=== PATIENT | female | born 1995 | race Caucasian/White ===

== ENCOUNTER 2020-10-29 20:49 | Emergency (ER) | payer BC, MEDICAID ==
[~2020-10-29] VITALS: Ht 162.6 cm; Wt 60.0 kg
[~2020-10-29 20:49] MED LIST: CITA20TA28 PO
[2020-10-29 21:02] VITALS: BP 124/81
--- NOTE | 2020-10-29 21:08 | NUR ---
PATIENT IN NO OPBSERVABLE S/S OF ACUTE RESPIRATORY DISTRESS AT THIS TIME PATIENT WAS PROVIDED WITH [facility]LET FOR OUT PATIENT MATERIAL WHERE TO GET COVID TEST OUTSIDE OF THE HOSPITAL SETTING
--- NOTE | 2020-10-29 21:59 | NUR ---
patient refusing send out atkinson test stated " i was told i could get a rapid." patient was told that provider will be notified. Patient now asking for toradol shot for lower back pain provider verbalized with a negative test we will give toradol w/o test patient can get tylenolProvider agrees no rapid will be done
--- NOTE | 2020-10-29 22:29 | NUR ---
PATIENT VERBALIZED SHE WILL HAVE A SEND OUT COVID SWAB
[2020-10-29 22:41] LABS: URINE HCG NEGATIVE (NEG)
[2020-10-29] MEDS ORDERED: ketorolac trometh inj. 60 MG/2 ML VIAL IM ONE (22:50)
== END 2020-10-29 23:01 | disposition home or self-care (01) ==
LOC: ER 20:50
DX: M54.5 Low back pain (principal); Z20.828 Contact with and (suspected) exposure to other viral communicable diseases; R09.81 Nasal congestion; G89.29 Other chronic pain; F17.200 Nicotine dependence, unspecified, uncomplicated; F12.90 Cannabis use, unspecified, uncomplicated; Z90.49 Acquired absence of other specified parts of digestive tract; Z90.89 Acquired absence of other organs; Z88.6 Allergy status to analgesic agent; Z79.899 Other long term (current) drug therapy; Z72.89 Other problems related to lifestyle
CPT/HCPCS: 36415; 81025; 87635; 96372; 99283; J1885

== ENCOUNTER 2022-03-12 16:08 | Emergency (ER) | payer BC, MEDICAID ==
[~2022-03-12] VITALS: Ht 162.6 cm; Wt 55.9 kg
[2022-03-12 16:52] LABS: BASOPHILS % (AUTO) 0.6 % (0-1); EOSINOPHILS % (AUTO) 0.4 % (0-6); HEMATOCRIT 41.2 % (35.0-45.0); HEMOGLOBIN 13.9 g/dl (12.0-16.0); LYMPHOCYTES # (AUTO) 1.6 X10'3 (1.1-4.8); LYMPHOCYTES % (AUTO) 47.2 % (21-51); MEAN CORPUSCULAR HEMOGLOBIN 29.1 PG (27.0-31.0); MEAN CORPUSCULAR HGB CONC 33.7 g/dL (33.0-36.5); MEAN CORPUSCULAR VOLUME 86.4 FL (78-98); MONOCYTES # (AUTO) 0.5 X10'3 (0-0.9); MONOCYTES % (AUTO) 14.8 % (2-12); NEUTROPHILS # (AUTO) 1.3 X10'3 (1.8-7.7); PLATELET COUNT 239 X10'3 (140-440); RED BLOOD COUNT 4.77 X10'6 (4.20-5.60); RED CELL DISTRIBUTION WIDTH 13.2 % (11.5-14.5); WHITE BLOOD COUNT 3.4 X10'3 (4.5-11.0)
[2022-03-12 16:55] LABS: CLARITY,URINE CLEAR (Clear); COLOR,URINE YELLOW (Yellow); GLUCOSE, URINE NEGATIVE (Neg); KETONES,URINE NEGATIVE (Neg); LEUKOCYTE ESTERASE ,URINE NEGATIVE (Neg); NITRITES, URINE NEGATIVE (Neg); OCCULT BLOOD,URINE TRACE-INTACT (Neg); PROTEIN,URINE 30 mg/dl (Neg); URINE HCG NEGATIVE (NEG); UROBILINOGEN,URINE 0.2 E.U/dL (0.2-1.0)
[2022-03-12 16:59] LABS: UA COLLECTION TYPE NON-SPECIFIED
[2022-03-12 17:00] LABS: BACTERIA,URINE NONE SEEN /HPF (Neg); MUCUS STRANDS MODERATE /LPF (Neg); RBC,URINE 0-2 /HPF (0-2); SQUAMOUS EPITHELIAL CELL,UR FEW /LPF (FEW); WBC,URINE 0-4 /HPF (0-4)
[2022-03-12 17:02] LABS: ALANINE AMINOTRANSFERASE 20 U/L (12-78); ALBUMIN 4.2 G/DL (3.4-5.0); ALBUMIN/GLOBULIN RATIO 1.2 (1.1-1.5); ALKALINE PHOSPHATASE 49 IU/L (46-116); ANION GAP 9 (8-16); ASPARTATE AMINO TRANSFERASE 18 U/L (10-37); BILIRUBIN,TOTAL 0.3 MG/DL (0.1-1.0); BLOOD UREA NITROGEN 14 MG/DL (7-18); BUN/CREATININE RATIO 18.2 (6.6-38.0); CALCIUM 8.9 MG/DL (8.5-10.1); CHLORIDE 104 MMOL/L (99-107); CREATININE 0.77 MG/DL (0.40-0.90); GLUCOSE 109 MG/DL (70-104); LIPASE 103 U/L (73-393); POTASSIUM 3.7 MMOL/L (3.5-5.1); SODIUM 143 MMOL/L (135-145); TOTAL CARBON DIOXIDE 29.9 MMOL/L (24-32); TOTAL PROTEIN 7.7 G/DL (6.4-8.2); eGFR > 90 ML/MIN
--- NOTE | 2022-03-12 18:27 | NUR ---
report to lamar england
[2022-03-12 20:47] VITALS: BP 127/84
== END 2022-03-12 20:49 | disposition home or self-care (01) ==
LOC: ER 16:08
DX: K80.20 Calculus of gallbladder without cholecystitis without obstruction (principal); Z20.822 Contact with and (suspected) exposure to COVID-19; R50.9 Fever, unspecified; R11.2 Nausea with vomiting, unspecified; R19.7 Diarrhea, unspecified; R05.9 Cough, unspecified; G89.29 Other chronic pain; F12.90 Cannabis use, unspecified, uncomplicated; Z72.89 Other problems related to lifestyle; Z90.49 Acquired absence of other specified parts of digestive tract; Z90.89 Acquired absence of other organs; Z88.5 Allergy status to narcotic agent; Z79.899 Other long term (current) drug therapy
CPT/HCPCS: 36415; 76700; 80053; 81001; 81025; 83690; 85025; 87502; 87503; 87635; 99284; C9803

== ENCOUNTER 2022-08-30 14:19 | Emergency (ER) | payer BC, MEDICAID | END 2022-08-30 15:14 | disposition left against medical advice (07) | LOC: ER 14:20 | DX: Z00.8 Encounter for other general examination (principal); Z53.21 Procedure and treatment not carried out due to patient leaving prior to being seen by health care provider ==

== ENCOUNTER 2023-04-21 10:55 | Day surgery (SDC) | payer MEDICAID ==
[2023-04-20 14:38] LABS: BASOPHILS % (AUTO) 0.7 % (0-1); EOSINOPHILS % (AUTO) 0.7 % (0-6); LYMPHOCYTES # (AUTO) 2.2 X10'3 (1.1-4.8); MEAN CORPUSCULAR HEMOGLOBIN 25.1 PG (27.0-31.0); MEAN CORPUSCULAR HGB CONC 31.8 g/dL (33.0-36.5); MEAN CORPUSCULAR VOLUME 78.8 FL (78-98); MEAN PLATELET VOLUME 7.9 FL (7.4-10.4); MONOCYTES # (AUTO) 0.4 X10'3 (0-0.9); MONOCYTES % (AUTO) 6.7 % (2-12); NEUTROPHILS # (AUTO) 3.4 X10'3 (1.8-7.7); NEUTROPHILS % (AUTO) 55.9 % (42-75); PRE OP HEMATOCRIT 35.1 % (35.0-45.0); PRE OP HEMOGLOBIN 11.2 g/dL (12.0-16.0); PRE OP PLATELET COUNT 313 X10'3 (140-440); RED BLOOD COUNT 4.46 X10'6 (4.20-5.60); RED CELL DISTRIBUTION WIDTH 15.9 % (11.5-14.5)
[2023-04-20 14:46] LABS: CLARITY,URINE CLOUDY (Clear); COLOR,URINE YELLOW (Yellow); GLUCOSE, URINE NEGATIVE (Neg); KETONES,URINE NEGATIVE (Neg); LEUKOCYTE ESTERASE ,URINE NEGATIVE (Neg); NITRITES, URINE NEGATIVE (Neg); OCCULT BLOOD,URINE SMALL (Neg); PROTEIN,URINE NEGATIVE (Neg); UROBILINOGEN,URINE 0.2 E.U/dL (0.2-1.0)
[2023-04-20 14:51] LABS: ALBUMIN 4.4 G/DL (3.4-5.0); ALBUMIN/GLOBULIN RATIO 1.5 (1.1-1.5); ALKALINE PHOSPHATASE 49 IU/L (46-116); BLOOD UREA NITROGEN 14 MG/DL (7-18); BUN/CREATININE RATIO 20.3 (10.0-20.0); CALCIUM 9.2 MG/DL (8.5-10.1); CHLORIDE 103 MMOL/L (99-107); CREATININE 0.69 MG/DL (0.40-0.90); PRE OP ALT 13 U/L (30-65); PRE OP ANION GAP 5 (8-16); PRE OP AST 15 U/L (10-37); PRE OP GLUCOSE 80 MG/DL (70-104); PRE OP SODIUM 139 MMOL/L (135-145); TOTAL CARBON DIOXIDE 31.3 MMOL/L (24-32); TOTAL PROTEIN 7.4 G/DL (6.4-8.2); eGFR > 90 ML/MIN
[2023-04-20 14:58] LABS: PRE OP BILIRUB, TOTAL 0.3 MG/DL (0.0-1.0); UA COLLECTION TYPE CLN CATCH MIDSTREAM
[2023-04-20 15:02] LABS: MUCUS STRANDS MANY /LPF (Neg); SQUAMOUS EPITHELIAL CELL,UR MANY /LPF (FEW)
[2023-04-20 15:04] LABS: BACTERIA,URINE FEW /HPF (Neg)
[2023-04-20 15:05] LABS: TRANSITIONAL EPI CELLS,URINE FEW /HPF
[2023-04-20 15:06] LABS: RBC,URINE 0-2 /HPF (0-2); WBC,URINE 0-4 /HPF (0-4)
[~2023-04-21] VITALS: Ht 162.6 cm; Wt 56.7 kg
[2023-04-21] VITALS (7 sets, daily range): BP systolic 112–151; BP diastolic 46–88
[~2023-04-21 10:55] MED LIST changes: -CITA20TA28 PO; +FERR-106 PO; +cefazolin 2gm/D5W 100mL 100 ML IV ONE; +famotidine 20mg tablet PO ONE; +ringers solution, lacted 1,000 ML IV SCH
[2023-04-21] MEDS ORDERED: hydrALAZINE 20mg/ml inj. IV PRN (14:10)
[2023-04-21] MEDS ORDERED: HYDROmorphone/PF 0.2 MG/ML SYRINGE IV PRN ×2 (14:10)
[2023-04-21] MEDS ORDERED: ondansetron/PF 4mg/2ml inj IV PRN (14:10)
[2023-04-21] MEDS ORDERED: morphine 4 MG/ML inj SYRINge IV PRN (14:10)
[2023-04-21] MEDS ORDERED: labetalol 20mg/4ml (5mg/ml) syringe IV PRN (14:10)
[2023-04-21] MEDS ORDERED: morphine 2 MG/ML inj. syringe IV PRN (14:10)
[2023-04-21] MEDS ORDERED: ringers solution, lacted 1,000 ML IV SCH (14:10)
[2023-04-21] MEDS ORDERED: INDOCYANINE GREEN 25 MG/10 ML VIAL IV ONE (14:22)
[2023-04-21] MEDS ORDERED: BUPIVAcaine/PF 2.5 mg/ml (0.25%) 30ml vial ONE (15:11)
[2023-04-21] MEDS ORDERED: fentaNYL/PF 50MCG/1 ML 2ML syringe ONE (15:19)
[2023-04-21] MEDS ORDERED: midazolam 1 mg/ML 2ml injection ONE (15:21)
[2023-04-21] MEDS ORDERED: LIDOcaine 2% (20mg/ml) 5ml vial ONE (15:25)
[2023-04-21] MEDS ORDERED: rocuronium 10mg/ml inj IV ONE ×2 (15:25→16:03)
[2023-04-21] MEDS ORDERED: propofol inj 20 ML IV ONE (15:25)
[2023-04-21] MEDS ORDERED: ondansetron/PF 4mg/2ml inj ONE (15:29)
[2023-04-21] MEDS ORDERED: acetaminophen 1,000mg/100ml IV 100 ML IV ONE (15:34)
[2023-04-21] MEDS ORDERED: ketorolac trometh. 30mg/ml inj. ONE (15:34)
[2023-04-21] MEDS ORDERED: ePHEDrine 50MG/ML INJ. ONE (15:50)
--- NOTE | 2023-04-21 16:33 | NUR ---
Received from OR via [facility], accompanied by Anesthesiologist DR COVINGTON and report given by Anesthesiolgist. PT PRESENTS WITH PIV 20G LEFT AC, ABD LAP SITES WITH DERMABOND CDI, SPO2 100 6L MASK, LR RUNNING AT 100MLS/HR, VSS. Addendum: 04/21/23 at 1643 by Willow Meza RN, RN Amended: Links added.
[2023-04-21] MEDS ORDERED: HYDROcodone/acetaminophen 10/325mg tab PO ONE (17:03)
--- NOTE | 2023-04-21 17:43 | NUR ---
ABLE TO SAFELY AMBULATE AND TRANSFER SELF. IV TAKEN OUT WITHOUT ANY COMPLICATIONS. ALL DISCHARGE INSTRUCTIONS COVERED WITH PATIENT AND ALL QUESTIONS ANSWERED. PATIENT TAKEN OUT VIA WHEELCHAIR TO PERSONAL VEHICLE WHERE FAMILY/FRIEND DROVE PATIENT HOME. Addendum: 04/21/23 at 1746 by Willow Meza RN, RN Amended: Links added.
== END 2023-04-21 17:43 | disposition home or self-care (01) ==
LOC: PAS 10:55
PROVIDERS: ATTEND Surgery
DX: K91.89 Other postprocedural complications and disorders of digestive system (principal); G89.29 Other chronic pain; M41.9 Scoliosis, unspecified; Z79.899 Other long term (current) drug therapy; F17.210 Nicotine dependence, cigarettes, uncomplicated; Z90.49 Acquired absence of other specified parts of digestive tract; Z98.51 Tubal ligation status; Z98.890 Other specified postprocedural states; Z88.5 Allergy status to narcotic agent; Z91.09 Other allergy status, other than to drugs and biological substances; Y83.8 Other surgical procedures as the cause of abnormal reaction of the patient, or of later complication, without mention of misadventure at the time of the procedure
CPT/HCPCS: 36415; 49329; 74018; 80053; 81001; 82948; 85025; J0131; J0690; J1885; J2250; J2405; J2704; J3010; J3490; J7030; J7120; Z7506; Z7508; Z7512; A4215; A4618; C1758

== ENCOUNTER 2023-04-21 22:47 | Emergency (ER) | payer MEDICAID ==
[~2023-04-21] VITALS: Ht 162.6 cm; Wt 60.0 kg
[~2023-04-21 22:47] MED LIST changes: -cefazolin 2gm/D5W 100mL 100 ML IV ONE; -famotidine 20mg tablet PO ONE; -ringers solution, lacted 1,000 ML IV SCH
[2023-04-22] MEDS ORDERED: iohexol 300mg/ml 100ml inj. ONE (00:22)
[2023-04-22 00:23] LABS: BASOPHILS % (AUTO) 0.1 % (0-1); EOSINOPHILS % (AUTO) 0 % (0-6); HEMATOCRIT 30.5 % (35.0-45.0); HEMOGLOBIN 10.1 g/dl (12.0-16.0); LYMPHOCYTES # (AUTO) 0.4 X10'3 (1.1-4.8); LYMPHOCYTES % (AUTO) 5.6 % (21-51); MEAN CORPUSCULAR HEMOGLOBIN 25.5 PG (27.0-31.0); MEAN CORPUSCULAR VOLUME 77.3 FL (78-98); MEAN PLATELET VOLUME 7.4 FL (7.4-10.4); MONOCYTES # (AUTO) 0.1 X10'3 (0-0.9); MONOCYTES % (AUTO) 1.9 % (2-12); NEUTROPHILS # (AUTO) 7.4 X10'3 (1.8-7.7); NEUTROPHILS % (AUTO) 92.4 % (42-75); PLATELET COUNT 260 X10'3 (140-440); RED BLOOD COUNT 3.94 X10'6 (4.20-5.60); RED CELL DISTRIBUTION WIDTH 15.9 % (11.5-14.5)
[2023-04-22 00:34] LABS: ALANINE AMINOTRANSFERASE 31 U/L (12-78); ALBUMIN 4.1 G/DL (3.4-5.0); ALBUMIN/GLOBULIN RATIO 1.5 (1.1-1.5); ALKALINE PHOSPHATASE 47 IU/L (46-116); ANION GAP 8 (8-16); ASPARTATE AMINO TRANSFERASE 34 U/L (10-37); BILIRUBIN,TOTAL 0.4 MG/DL (0.1-1.0); BLOOD UREA NITROGEN 9 MG/DL (7-18); BUN/CREATININE RATIO 11.3 (10.0-20.0); CALCIUM 8.7 MG/DL (8.5-10.1); CHLORIDE 102 MMOL/L (99-107); GLUCOSE 235 MG/DL (70-104); SODIUM 137 MMOL/L (135-145); TOTAL PROTEIN 6.8 G/DL (6.4-8.2); eGFR 87 ML/MIN
[2023-04-22 00:40] LABS: CLARITY,URINE CLEAR (Clear); COLOR,URINE YELLOW (Yellow); GLUCOSE, URINE NEGATIVE (Neg); KETONES,URINE 15 mg/dl (Neg); LEUKOCYTE ESTERASE ,URINE NEGATIVE (Neg); NITRITES, URINE NEGATIVE (Neg); OCCULT BLOOD,URINE SMALL (Neg); PROTEIN,URINE NEGATIVE (Neg); URINE HCG NEGATIVE (NEG); UROBILINOGEN,URINE 0.2 E.U/dL (0.2-1.0)
[2023-04-22 00:45] LABS: UA COLLECTION TYPE CLN CATCH MIDSTREAM
[2023-04-22 00:46] LABS: BACTERIA,URINE NONE SEEN /HPF (Neg); MUCUS STRANDS FEW /LPF (Neg); RBC,URINE 0-2 /HPF (0-2); SQUAMOUS EPITHELIAL CELL,UR MODERATE /LPF (FEW)
[2023-04-22 00:47] LABS: WBC,URINE 0-4 /HPF (0-4)
[2023-04-22] MEDS ORDERED: fentaNYL/PF 50MCG/1 ML 2ML syringe IV ONE ×2 (01:00→04:25)
[2023-04-22] MEDS ORDERED: metoclopramide 5 mg/ml inj IV ONE (01:00)
[2023-04-22] MEDS ORDERED: LidoCAINE 2% Topical Jelly 11mL syringe TOP ONE (02:15)
[2023-04-22 05:03] VITALS: BP 102/68
== END 2023-04-22 05:07 | disposition home or self-care (01) ==
LOC: ER 22:48
DX: R33.9 Retention of urine, unspecified (principal); R10.84 Generalized abdominal pain; G89.29 Other chronic pain; F12.90 Cannabis use, unspecified, uncomplicated; Z90.49 Acquired absence of other specified parts of digestive tract; Z90.89 Acquired absence of other organs; Z72.89 Other problems related to lifestyle; Z88.5 Allergy status to narcotic agent; Z79.899 Other long term (current) drug therapy
CPT/HCPCS: 36415; 51702; 74177; 80053; 81001; 81025; 85025; 96374; 96375; 96376; 99285; J2765; J3010; J3490; Q9967; A4358; A5200

== ENCOUNTER 2023-04-26 18:25 | Emergency (ER) | payer MEDICAID ==
[~2023-04-26] VITALS: Ht 162.6 cm; Wt 56.8 kg
--- NOTE | 2023-04-26 19:59 | NUR ---
Dr. Linton was made aware of patients' hx with urinary retention s/p surgery and that I would be placing salcido. MD laboy'd
[2023-04-26] MEDS ORDERED: HYDROcodone/acetaminophen 5mg/325mg tablet PO ONE (21:25)
[2023-04-26 21:34] VITALS: BP 105/65
== END 2023-04-26 21:36 | disposition home or self-care (01) ==
LOC: ER 18:25
DX: R33.9 Retention of urine, unspecified (principal); G89.29 Other chronic pain; F17.200 Nicotine dependence, unspecified, uncomplicated; F12.90 Cannabis use, unspecified, uncomplicated; Z90.49 Acquired absence of other specified parts of digestive tract; Z90.89 Acquired absence of other organs; Z72.89 Other problems related to lifestyle; Z88.5 Allergy status to narcotic agent; Z79.899 Other long term (current) drug therapy
CPT/HCPCS: 51702; 99284; A4358; A5200